=== PATIENT | female | born 1995 | race Two or more races ===

== ENCOUNTER 2020-04-13 16:29 | Outpatient (REF) | payer MEDICAID, SELFPAY | END 2020-04-13 16:30 | disposition home or self-care (01) | LOC: HO.LAB 16:29 | PROVIDERS: Visit Provider Internal Medicine | DX: Z20.828 Contact with and (suspected) exposure to other viral communicable diseases (principal) | CPT/HCPCS: C9803; U0003 ==

== ENCOUNTER 2020-05-23 16:04 | Outpatient (REF) | payer MEDICAID, SELFPAY | END 2020-05-23 16:05 | disposition home or self-care (01) | LOC: HO.LAB 16:04 | PROVIDERS: Visit Provider Internal Medicine | DX: Z20.822 Contact with and (suspected) exposure to COVID-19 (principal) | CPT/HCPCS: 36415; C9803; U0003; U0005 ==

== ENCOUNTER 2020-06-02 14:03 | Outpatient (REF) | payer MEDICAID, SELFPAY | END 2020-06-02 14:04 | disposition home or self-care (01) | LOC: HO.LAB 14:03 | PROVIDERS: Visit Provider Internal Medicine | DX: Z20.822 Contact with and (suspected) exposure to COVID-19 (principal) | CPT/HCPCS: 36415; C9803; U0003; U0005 ==